=== PATIENT | male | born 1990 | race African-American/Black ===

== ENCOUNTER 2022-02-17 20:23 | Emergency (ER) | payer MEDICAID ==
[~2022-02-17] VITALS: Ht 182.9 cm; Wt 109.0 kg
[2022-02-18] MEDS ORDERED: OLANZAPINE 10 MG/VIAL IM ONE (00:30)
[2022-02-18] MEDS ORDERED: ZIPRASIDONE MESYLATE 20MG/VIAL IM ONE (03:15)
[2022-02-18 04:02] LABS: BASOPHILS % 0.7 % (0.0-2.0); EOSINOPHILS % 1.6 % (0.0-5.0); HEMATOCRIT. 44.5 % (42.0-52.0); HEMOGLOBIN. 15.3 g/dL (14.0-18.0); LYMPHOCYTES % 24.8 % (20.0-50.0); MEAN CORPUSCULAR HEMOGLOBIN 29.2 pg (28.0-32.0); MEAN CORPUSCULAR VOLUME 85.2 fL (80.0-94.0); MEAN PLATELET VOLUME 7.5 fl (7.4-10.4); MONOCYTES % 9.3 % (2.0-8.0); NEUTROPHILS % 63.6 % (40.0-76.0); PLATELET 308 x1000/uL (130-400); RED BLOOD CELL COUNT 5.23 mill/uL (4.7-6.1); RED CELL DISTRIBUTION WIDTH 13.4 % (11.6-14.6)
[2022-02-18 04:33] LABS: CHLORIDE 100 mEq/L (98-107)
[2022-02-18 04:45] LABS: ETHANOL BLOOD < 10 mg/dL
[2022-02-18] MEDS ORDERED: HALOPERIDOL LACTATE 5MG/ML VIAL IM ONE (08:15)
[2022-02-18] MEDS ORDERED: DIPHENHYDRAMINE 50MG CAPSULE PO ONE (11:30)
[2022-02-18] MEDS ORDERED: ACETAMINOPHEN 325MG TABLET PO ONE (16:45)
[2022-02-18] MEDS ORDERED: DIPHENHYDRAMINE 50MG/ML VIAL IM ONE (19:30)
[2022-02-18] MEDS: HALOPERIDOL LACTATE 5MG/ML VIAL IM ONE ×2 (19:45→20:50)
[2022-02-18] MEDS: LORAZEPAM 2MG/ML CPJ IM ONE ×2 (19:45→20:49)
[2022-02-19] MEDS ORDERED: HALOPERIDOL LACTATE 5MG/ML VIAL IM NR (01:45)
[2022-02-19] MEDS ORDERED: LORAZEPAM 2MG/ML CPJ IM NR (01:45)
[2022-02-19 10:47] LABS: *AMPHETAMINES SCREEN URINE PRESUMTIVE POSITIVE (NEGATIVE); *BARBITURATES SCREEN URINE NEGATIVE (NEGATIVE); *BENZODIAZEPINES SCREEN URINE NEGATIVE (NEGATIVE); *COCAINE SCREEN URINE NEGATIVE (NEGATIVE); CANNABINOID URINE SCREEN NEGATIVE (NEGATIVE); METHADONE URINE SCREEN NEGATIVE (NEGATIVE); OPIATES URINE SCREEN NEGATIVE (NEGATIVE); PHENCYCLIDINE URINE SCREEN NEGATIVE (NEGATIVE)
[2022-02-19 11:01] LABS: CLARITY URINE CLEAR (CLEAR); COLOR URINE YELLOW (YELLOW); KETONES URINE NEGATIVE (NEGATIVE); LEUKOCYTE ESTERASE URINE NEGATIVE (NEGATIVE); NITRITE URINE NEGATIVE (NEGATIVE); OCCULT BLOOD URINE NEGATIVE (NEGATIVE); PH URINE 6.5 (4.5-8.0); PROTEIN URINE NEGATIVE (NEGATIVE); SPECIFIC GRAVITY URINE 1.024 (1.005-1.030); UROBILINOGEN URINE 0.2 E.U./dL (0.2-1.0)
[2022-02-19] MEDS ORDERED: LORAZEPAM 1MG TABLET PO ONE ×2 (16:30→21:15)
[2022-02-19] MEDS ORDERED: LORAZEPAM 1MG TABLET PO SCH (17:45)
[2022-02-20] MEDS ORDERED: LORAZEPAM 1MG TABLET PO ONE (21:45)
[2022-02-21 09:21] VITALS: BP 131/61
== END 2022-02-21 09:37 | disposition short-term general hospital (02) ==
LOC: ER 21:23
DX: F23 Brief psychotic disorder (principal); F32.A Depression, unspecified; F41.9 Anxiety disorder, unspecified; R53.1 Weakness; R45.851 Suicidal ideations; F43.10 Post-traumatic stress disorder, unspecified; Z20.822 Contact with and (suspected) exposure to COVID-19; Z78.1 Physical restraint status; Z75.1 Person awaiting admission to adequate facility elsewhere; Z88.6 Allergy status to analgesic agent
CPT/HCPCS: 80053; 80305; 80320; 81001; 85025; 96372; 99285; C9803; J1200; J1630; J3486; J3490; Q0163; U0003; U0005; J2060; G0480